=== PATIENT | male | born 1985 | race Caucasian/White ===

== ENCOUNTER 2022-05-19 12:32 | Emergency (ER) | payer MEDICAID ==
[~2022-05-19] VITALS: Ht 185.4 cm; Wt 78.6 kg
[2022-05-19 13:38] VITALS: BP 138/85
[2022-05-19] MEDS ORDERED: OLANZapine 5 MG TABLET PO ONE (14:30)
== END 2022-05-19 16:39 | disposition home or self-care (01) ==
LOC: EMS 12:34
DX: F20.9 Schizophrenia, unspecified (principal); F41.9 Anxiety disorder, unspecified; F17.210 Nicotine dependence, cigarettes, uncomplicated; Z88.1 Allergy status to other antibiotic agents
CPT/HCPCS: 99283; 99284